=== PATIENT | female | born 1950 | race Caucasian/White ===

== ENCOUNTER 2019-05-22 09:14 | Outpatient (RCR) | payer OTHER | END 2019-05-27 | disposition home or self-care (01) | LOC: WCC 09:14 | DX: T86.821 Skin graft (allograft) (autograft) failure (principal); I10 Essential (primary) hypertension; M17.11 Unilateral primary osteoarthritis, right knee; Z85.3 Personal history of malignant neoplasm of breast; Z90.13 Acquired absence of bilateral breasts and nipples | CPT/HCPCS: G0277; G0463; 99204 ==

== ENCOUNTER 2019-05-30 09:02 | Outpatient (RCR) | payer OTHER | END 2019-06-26 | disposition home or self-care (01) | LOC: WCC 09:02 | DX: T86.821 Skin graft (allograft) (autograft) failure (principal); M17.11 Unilateral primary osteoarthritis, right knee; I10 Essential (primary) hypertension; Z85.3 Personal history of malignant neoplasm of breast; Z79.899 Other long term (current) drug therapy; Z90.13 Acquired absence of bilateral breasts and nipples | CPT/HCPCS: G0277 ×20 ==

== ENCOUNTER 2019-06-27 10:17 | Outpatient (RCR) | payer OTHER | END 2019-07-27 | disposition home or self-care (01) | LOC: WCC 10:17 | DX: T86.821 Skin graft (allograft) (autograft) failure (principal); I10 Essential (primary) hypertension; Z85.3 Personal history of malignant neoplasm of breast; M17.11 Unilateral primary osteoarthritis, right knee; Z79.899 Other long term (current) drug therapy; Z90.13 Acquired absence of bilateral breasts and nipples | CPT/HCPCS: G0277 ×7 ==